=== PATIENT | male | born 1950 | race Two or more races ===

== ENCOUNTER 2018-10-29 02:12 | Emergency (ER) | payer OTHER, SELFPAY ==
[~2018-10-29] VITALS: Ht 157.5 cm; Wt 75.2 kg
[2018-10-29] MEDS ORDERED: METH750T2 PO (02:20)
[2018-10-29] MEDS ORDERED: IBUP-1623 PO (02:20)
[2018-10-29] MEDS ORDERED: KETOROLAC 30 MG/1 ML ONE (02:51)
[2018-10-29] MEDS ORDERED: ONDANSETRON 2MG/ML, 2ML ONE (02:51)
[2018-10-29] MEDS ORDERED: MORPHINE SULFATE 4 MG/ML, 1ML ONE (02:52)
[2018-10-29 02:54] LABS: BASOPHILS # (AUTO) 0.03 x10^3/uL (0-0.1); BASOPHILS % (AUTO) 1 % (0-1); EOSINOPHILS # (AUTO) 0.19 x10^3/uL (0-0.4); EOSINOPHILS % (AUTO) 3 % (1-7); LYMPHOCYTES # (AUTO) 1.55 x10^3/uL (1-3.4); LYMPHOCYTES % (AUTO) 25 % (22-44); MD NO; MEAN CORPUSCULAR HEMOGLOBIN 30.2 pg (27.5-34.5); MEAN CORPUSCULAR HGB CONC 34.1 g/dL (33.2-36.2); MEAN CORPUSCULAR VOLUME 88.7 fL (81-97); MEAN PLATELET VOLUME 7.2 fL (7.4-10.4); MONOCYTES # (AUTO) 0.72 x10^3/uL (0.2-0.8); MONOCYTES % (AUTO) 12 % (2-9); NEUTROPHILS # (AUTO) 3.66 x10^3/uL (1.8-6.8); NEUTROPHILS % (AUTO) 60 % (42-75); PLATELET COUNT 270 x10^3/uL (130-400); RED BLOOD COUNT 5.19 x10^6/uL (4.38-5.82); RED CELL DISTRIBUTION WIDTH 14.2 % (9.4-14.8)
[2018-10-29 02:58] LABS: MICROSCOPIC NOT IND
[2018-10-29] MEDS ORDERED: KETOROLAC 30 MG/1 ML IVPush ONE (03:00)
[2018-10-29] MEDS ORDERED: ONDANSETRON 2MG/ML, 2ML IVPush ONE (03:00)
[2018-10-29] MEDS ORDERED: MORPHINE SULFATE 4 MG/ML, 1ML IVPush PRN (03:00)
[2018-10-29] MEDS ORDERED: SODIUM CHLORIDE FLUSH 10ML SYR IVF ONE (03:00)
--- NOTE | 2018-10-29 03:00 | NUR ---
PT HERE FOR LEFT FLANK AND LLQ PAIN. PT DENIES N/V. PIV PLACED AND PT MEDICATED FOR PAIN. VSS. PT PLACED ON 2 L O2 BECAUSE HIS SPO2 DROPPED TO 90 AFTER MORPHINE WAS GIVEN. PT RESTING WITH NO NEEDS. UA AND BLOOD SENT TO LAB. CALL LIGHT IN REACH
[2018-10-29 03:02] LABS: CULTURE INDICATED? NO
[2018-10-29 03:04] LABS: ALANINE AMINOTRANSFERASE 27 U/L (12-78); ALBUMIN 3.9 g/dL (3.4-5.0); ANION GAP 5 mmol/L (5-15); CALCIUM 8.6 mg/dL (8.5-10.1); CHLORIDE 108 mmol/L (98-107); CREATININE 0.88 mg/dL (0.7-1.3)
[2018-10-29 03:06] LABS: ALKALINE PHOSPHATASE 58 U/L (45-117); BILIRUBIN,TOTAL 0.5 mg/dL (0.2-1.0); TOTAL PROTEIN 7.3 g/dL (6.4-8.2)
--- NOTE | 2018-10-29 04:02 | NUR ---
PT REFUSING CT AT THIS TIME DUE TO INSURANCE COVERAGE. AWARE AND WILL TALK TO PT.
--- NOTE | 2018-10-29 04:22 | NUR ---
Patient given discharge instructions and they have confirmed that they understand the instructions. Patient ambulatory with steady gait.
[2018-10-29 04:23] VITALS: BP 126/69
== END 2018-10-29 04:24 | disposition home or self-care (01) ==
LOC: ED 03:23
DX: R10.32 Left lower quadrant pain (principal); M19.90 Unspecified osteoarthritis, unspecified site
CPT/HCPCS: 36415; 80053; 81003; 83690; 85025; 96374; 96375; 99283; J1885; J2405